=== PATIENT | male | born 1995 | race African-American/Black ===

== ENCOUNTER 2023-02-18 10:06 | Emergency (ER) | payer BC, SELFPAY ==
[2023-02-18 10:14] VITALS: BP 148/90; PULSE 80; RESP 16; TEMP 36.2; O2SAT 99; BMI 21.3
[2023-02-18] MEDS: KETOROLAC 15 MG/ML inj IVP (13:09)
[2023-02-18] MEDS: METOCLOPRAMIDE HCL 5 MG/ML INJ 10 MG IVP (13:10)
[2023-02-18] MEDS: LACTATED RINGERS 1000 ML 1,000 ML IV (13:10)
[2023-02-18] MEDS: diphenhydrAMINE 50 MG/ML inj 25 MG IVP (13:10)
[2023-02-18 13:24] LABS: Basophils Absolute Auto 0.04 K/uL (0.00-0.30); Basophils Percent Auto 0.5 % (0.0-3.0); Eosinophils Absolute Auto 0.03 K/uL (0.00-0.50); Eosinophils Percent Auto 0.4 % (0.0-7.0); Hematocrit 45.2 % (37.0-53.0); Hemoglobin* 15.6 gm/dL (13.5-17.5); Immature Granulocytes Abs Auto 0.02 K/uL (0.00-0.30); Immature Granulocytes Pct Auto 0.2 %; Lymphocytes Absolute Auto 2.69 K/uL (0.90-2.90); Lymphocytes Percent Auto 32.3 % (20-44); Mean Corpuscular HGB Conc 35 gm/dL (32-36); Mean Corpuscular Hemoglobin 31 pg (26-34); Mean Corpuscular Volume 91 fL (80-100); Monocytes Percent Auto 8.3 % (0.0-11.0); Neutrophils Absolute Auto 4.87 K/uL (1.7-7.0); Neutrophils Percent Auto 58.3 % (42.0-72.0); Platelet Count* 263 K/uL (140-440); RDW Coefficient of Variation % 11.5 % (11.5-15.5); Red Blood Count 4.98 m/uL (4.30-5.90); White Blood Count* 8.34 K/uL (4.50-11.00)
[2023-02-18 13:29] LABS: Slide Review Reflex No
[2023-02-18 13:42] LABS: Chloride* 106 mmol/L (96-114); Sodium* 142 mmol/L (135-149)
[2023-02-18 13:43] LABS: Potassium* 3.9 mmol/L (3.6-5.1)
--- NOTE | 2023-02-18 13:44 | ED.NURSE ---
Pt reports being unable to sleep the past 2 weeks. Recently entered treatment facility in [place] about 1 week ago. He takes seroquel and ambien at night at the facilty for sleep. States these are not helpful for him. Denies any pain.
[2023-02-18 13:45] LABS: Creatinine* 0.8 mg/dL (0.5-1.5); Estimated Glomerular Filt Rate 125 ml/min
[2023-02-18 13:46] LABS: Anion Gap 7 mEq/L (7-15); Blood Urea Nitrogen* 9 mg/dL (5-24); Calcium* 9.8 mg/dL (8.4-10.6); Carbon Dioxide* 29 mmol/L (20-32); Glucose* 93 mg/dL (60-115); Magnesium* 2.3 mg/dL (1.5-2.6)
--- NOTE | 2023-02-18 14:37 | ED.GENADULT ---
HPI - General Adult General Date Seen: 02/18/23 Chief complaint: Unspecified Complaint, Adult Stated complaint: Insomnia Time Seen by Provider: 02/18/23 12:23 Source: patient Mode of arrival: ambulatory Limitations: no limitations History of Present Illness HPI narrative: Patient is a 27-year-old male with history of insomnia and drug abuse presented emergency department for insomnia. He states he quit using drugs 2 weeks ago and since then has not been able to sleep. States his drug of choice at that time was Percocet. He is currently in a drug rehab center and has been placed on Seroquel. He states he has not been asleep at all for the past 2 weeks and went to [facility] yesterday and was started on Ambien. He took it last night states that the not help him sleep at all. Denies any auditory hallucinations but this is having occasional visual hallucinations. Denies any suicidal homicidal thoughts. States that that his drug rehab facility there are providers there looking prescribed medicine. Denies fevers, chills, chest pain, shortness of breath, lightheadedness, dizziness, weakness, numbness. Related Data Home Medications Medication Instructions Recorded Confirmed buprenorphine 8 mg-naloxone 2 mg 1 film buccal TID 02/18/23 02/18/23 sublingual film (Suboxone) clonidine HCl 0.1 mg tablet 0.1 mg PO Q4H 02/18/23 02/18/23 diphenhydramine HCl 25 mg capsule 25 mg PO Q6-8H PRN 02/18/23 02/18/23 (Benadryl) melatonin 10 mg capsule 10 mg PO HS PRN 02/18/23 02/18/23 quetiapine 50 mg tablet 150 mg PO DAILY PRN 02/18/23 02/18/23 zolpidem 10 mg tablet (Ambien) 10 mg PO QHS 02/18/23 02/18/23 Previous Rx's Medication Instructions Recorded trazodone 50 mg tablet 50 mg PO QHS #20 tabs 02/18/23 Allergies Allergy/AdvReac Type Severity Reaction Status Date / Time No Known Drug Allergies Allergy Verified 02/18/23 10:25 Review of Systems Status of ROS: Reports: 10 or more systems reviewed and unremarkable except as noted in History and below PFSH PFSH Social History Smoking Status: Unknown if ever smoked Do you use any of these nicotine containing products: None Second hand tobacco smoke exposure: No How often do you have a drink containing alcohol: never How often do you have six or more drinks on one occasion: Never AUDIT-C Alcohol total score: 0 Non-prescribed substance use: former substance user service: No Exam Narrative: Exam Narrative: Const: Well-nourished, Well-developed, in mild distress Eyes: PERRL, no conjunctival injection, and symmetrical lids ENMT: Atraumatic external nose and ears. Moist mucous membranes. Neck: Symmetric, trachea midline, No thyromegaly. CVS: RRR, No murmurs or gallops. Peripheral pulses 2+ and equal in all extremities RESP: Unlabored respiratory effort. Clear to auscultation bilaterally. GI: Nontender/Nondistended, No rebound or guarding. MSK:Extremities w/o deformity, Normal Active ROM Skin: Warm, Dry. No rashes or lesions. Neuro: Normal Muscle tone, No focal neurological deficits. Psych: Awake, Alert, & Oriented x3. Appropriate mood and affect. Const: Vital Signs, click to edit/add: Vital Signs - 24 hr 02/18/23 10:14 Temperature 97.2 F L Pulse Rate [Pulse Oximeter] 80 Respiratory Rate 16 Blood Pressure [Ri ght Upper Arm] 148/90 H Pulse Oximetry 99 Oxygen Delivery Me thod Room Air Course Vital Signs Vital signs: Initial Vital Signs Temperature 97.2 F L 02/18/23 10:14 Temperature Source Temporal Artery Scan 02/18/23 10:14 Pulse Rate 80 02/18/23 10:14 Respiratory Rate 16 02/18/23 10:14 Blood Pressure 148/90 H 02/18/23 10:14 Blood Pressure Mean 109 H 02/18/23 10:14 Blood Pressure Position Sitting 02/18/23 10:14 Pulse Oximetry 99 02/18/23 10:14 Oxygen Delivery Method Room Air 02/18/23 10:14 Vital Signs Temperature 97.2 F L 02/18/23 10:14 Pulse Rate 80 02/18/23 10:14 Respiratory Rate 16 02/18/23 10:14 Blood Pressure 148/90 H 02/18/23 10:14 Pulse Oximetry 99 02/18/23 10:14 Oxygen Delivery Method Room Air 02/18/23 10:14 Temperature 97.2 F L 02/18/23 10:14 Pulse Rate 80 02/18/23 10:14 Respiratory Rate 16 02/18/23 10:14 Blood Pressure 148/90 H 02/18/23 10:14 Pulse Oximetry 99 02/18/23 10:14 Oxygen Delivery Method Room Air 02/18/23 10:14 Medical Decision Making MDM Narrative Medical decision making narrative: Patient is a 27-year-old man presented emergency department for insomnia. He states he has been having this issue for the past 2 weeks since he quit using Percocets. He is currently in drug rehab facility. States he has gone through withdrawals and insomnia continues. States he had these symptoms previously in the past when he abstain from opioids and instead of getting treatment he started using Percocet again. CBC, BMP, Mag levels were all checked to rule out any electrolyte abnormalities. They are all normal. He is also complaining about a headache. Toradol, Reglan, diphenhydramine, lactated Ringer's were given for a migraine cocktail. Headache is likely due to his inability to sleep. Headache improved with the medication He has tried Ambien and Seroquel without improvement in his symptoms. I spoke to were possibly have a psych evaluation and he declined. This time I do not believe he is a threat to himself or others and of neck she believes that he needs a psych evaluation in the was just a thought on how to help him. He will be started on trazodone which he states he has used in the past with some success. He will be discharged back to his rehab facility. He is agreeable to this plan. Lab Data Labs: Lab Results 02/18/23 Range/Units 13:09 WBC 8.34 (4.50-11.00) K/uL RBC 4.98 (4.30-5.90) m/uL Hgb 15.6 (13.5-17.5) gm/dL Hct 45.2 (37.0-53.0) % MCV 91 (80-100) fL MCH 31 (26-34) pg MCHC 35 (32-36) gm/dL RDW Coeff of Kike 11.5 (11.5-15.5) % Plt Count 263 (140-440) K/uL Neut % (Auto) 58.3 (42.0-72.0) % Lymph % (Auto) 32.3 (20-44) % [place] % (Auto) 8.3 (0.0-11.0) % Eos % (Auto) 0.4 (0.0-7.0) % Baso % (Auto) 0.5 (0.0-3.0) % Neut # (Auto) 4.87 (1.7-7.0) K/uL Lymph # (Auto) 2.69 (0.90-2.90) K/uL [place] # (Auto) 0.70 (0.00-0.90) K/UL Eos # (Auto) 0.03 (0.00-0.50) K/uL Baso # (Auto) 0.04 (0.00-0.30) K/uL Abs Immat Gran (auto) 0.02 (0.00-0.30) K/uL Imm/Tot Granulo (auto) 0.2 % Sodium 142 (135-149) mmol/L Potassium 3.9 (3.6-5.1) mmol/L Chloride 106 (96-114) mmol/L Carbon Dioxide 29 (20-32) mmol/L Anion Gap 7 (7-15) mEq/L BUN 9 (5-24) mg/dL Creatinine 0.8 (0.5-1.5) mg/dL Estimated Creat Clear 157.10 Estimated GFR 125 ml/min Glucose 93 (60-115) mg/dL Calcium 9.8 (8.4-10.6) mg/dL Magnesium 2.3 (1.5-2.6) mg/dL Discharge Plan Discharge Clinical Impression: Insomnia Qualifiers: Insomnia type: unspecified Qualified Code(s): G47.00 - Insomnia, unspecified Patient Disposition: Home, Self-Care Condition: Stable Instructions: Insomnia (ED) Additional Instructions: Take the trazodone as prescribed. Return for new worsening symptoms. Will give information for primary call follow-up. Prescriptions: New trazodone 50 mg tablet 50 mg PO QHS Qty: 20 2RF Rx Instructions: Take 1-2 tabs at night. No Action buprenorphine-naloxone [Suboxone] 8-2 mg film 1 film buccal TID quetiapine 50 mg tablet 150 mg PO DAILY PRN Rx Instructions: 1-3 tabs prn diphenhydramine HCl [Benadryl] 25 mg capsule 25 mg PO Q6-8H PRN clonidine HCl 0.1 mg tablet 0.1 mg PO Q4H melatonin 10 mg capsule 10 mg PO HS PRN zolpidem [Ambien] 10 mg tablet 10 mg PO QHS Follow Up/Referrals: Provider,Not a Local [Primary Care Provider] - Stand Alone Forms: [facility] Info Instructions
== END 2023-02-18 14:45 | disposition home or self-care (01) ==
PROVIDERS: Emergency Provider Student in an Organized Health Care Education/Training Program
DX: G47.00 Insomnia, unspecified (principal)
CPT/HCPCS: 36415; 80048; 83735; 85025; 96374; 96375; 99283; 99284; J1200; J1885; J2765; J7120